=== PATIENT | female | born 1945 | race Caucasian/White ===

== ENCOUNTER 2017-03-25 05:55 | Observation (INO) | payer OTHER ==
[~2017-03-25] VITALS: Ht 160 cm; Wt 89.0 kg
[~2017-03-25 05:55] MED LIST: ASPI81TA82 PO; ATOR20TA PO; CALC500T19 PO; CITA10TA4 PO; FISH100020 PO; L-LY500T4 PO; LISI-363 PO
[2017-03-25] MEDS ORDERED: SODIUM CHLORID 0.9% 500 ML IV PRN (06:15)
[2017-03-25] MEDS ORDERED: LACTATED RINGER'S 1000 ML IV PRN (06:15)
[2017-03-25] MEDS ORDERED: CHLORHEXIDINE GLUCONATE 2 % 1 PACK (2 CLOTHS) TOPICAL PRN (06:15)
[2017-03-25] MEDS ORDERED: METOPROLOL TARTRATE 25 MG TAB PO PRN (06:15)
[2017-03-25] MEDS ORDERED: ceFAZolin 2 GM PREMIX 50 ML IV SCH (06:15)
[2017-03-25] MEDS ORDERED: POVIDONE IODINE 5% (ANTISEPSIS KIT) 4 APPLICATIONS EACH NARE PRN (06:15)
[2017-03-25] MEDS ORDERED: INSULIN HUMAN REGULAR 1,000 UNITS/10 ML VIAL SQ PRN (06:15)
[2017-03-25] MEDS ORDERED: LYSI1000 (06:24)
[2017-03-25] MEDS ORDERED: ASPI81TA11 PO (06:24)
[2017-03-25] MEDS ORDERED: CALC500C16 CHEW (06:24)
[2017-03-25] MEDS ORDERED: CITA10TA4 PO (06:24)
[2017-03-25] MEDS ORDERED: LISI-515 PO (06:24)
[2017-03-25] MEDS ORDERED: ATOR20TA15 PO (06:24)
[2017-03-25] MEDS ORDERED: OMEGCAP PO (06:25)
[2017-03-25] MEDS ORDERED: FAMOTIDINE 20 MG/2 ML VIAL ONE (07:08)
[2017-03-25] MEDS ORDERED: APREPITANT 40 MG CAP ONE (07:08)
[2017-03-25] MEDS ORDERED: LACTATED RINGER'S 1000 ML INJ 1,000 ML IV ONE (07:44)
[2017-03-25] MEDS ORDERED: ONDANSETRON HCL 4 MG/2 ML VIAL IV PUSH ONE (07:44)
[2017-03-25] MEDS ORDERED: PROPOFOL 200 MG/20 ML AMP IV ONE (07:44)
[2017-03-25] MEDS ORDERED: ePHEDrine/NS 25 MG/5 ML SYR IV ONE (07:44)
[2017-03-25] MEDS ORDERED: PHENYLEPH/NS 1000 MCG/10 ML SYR IV ONE (07:44)
[2017-03-25] MEDS ORDERED: MIDAZOLAM HCL 2 MG/2 ML VIAL ONE (07:48)
[2017-03-25] MEDS ORDERED: LIDOCAINE 2%/EPINEPHrine PF 1:200,000 20ML SDV ONE (09:23)
[2017-03-25] MEDS ORDERED: ceFAZolin INJ 1,000 MG VIAL IV ONE (10:56)
[2017-03-25] MEDS ORDERED: DO NOT ADM ANY ANTICOAGULANT DRUGS PRN (12:53)
[2017-03-25] MEDS ORDERED: PROMETHAZINE HCL 25 MG TAB PO PRN (13:00)
[2017-03-25] MEDS: LACTATED RINGER'S 1000 ML INJ 1,000 ML IV SCH ×2 (13:00→19:49)
[2017-03-25] MEDS ORDERED: *morphine SULFATE 8 MG/ML PERIprocedure ONLY ONE ×3 (13:02→13:42)
[2017-03-25] MEDS ORDERED: *HYDROmorphone PF 1 MG VIAL PERIprocedural Use ONLY ONE (14:22)
[2017-03-25] MEDS: HYDROmorphone HCL PF 1 MG/ML VIAL IV PUSH PRN ×3 (14:26→20:23)
[2017-03-25 20:00] VITALS: BP 124/58; PULSE 78; RESP 17; TEMP 96.8; O2SAT 92
[2017-03-25] MEDS ORDERED: ATORVASTATIN 20 MG TAB PO SCH (21:00)
[2017-03-26] VITALS: BP 119/57; PULSE 75; RESP 17; TEMP 96.3; O2SAT 97
[2017-03-26] MEDS: HYDROmorphone HCL PF 1 MG/ML VIAL IV PUSH PRN (00:42)
[2017-03-26 04:00] VITALS: BP 129/59; PULSE 72; RESP 17; TEMP 96.4; O2SAT 93
[2017-03-26] MEDS: oxyCODONE/ACETAMINOPHEN 5 MG/325 MG TAB PO PRN ×2 (05:46→09:46)
[2017-03-26 07:50] VITALS: BP 135/61; PULSE 76; RESP 20; TEMP 96.7; O2SAT 94
[2017-03-26] MEDS ORDERED: LISINOPRIL 20 MG TAB PO SCH (09:00)
--- NOTE | 2017-03-26 10:47 | PD.PLAS.PN ---
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 OK to dc home FU Next week Friday Vital Signs Date Time Temp Pulse Resp B/P (MAP) Pulse Ox O2 Delivery O2 Flow Rate FiO2 03/26/17 07:50 96.7 76 20 135/61 (85) 94 03/26/17 04:00 96.4 72 17 129/59 (82) 93 03/26/17 00:00 96.3 75 17 119/57 (77) 97 03/25/17 20:00 96.8 78 17 124/58 (80) 92 03/25/17 14:30 97.4 77 14 97/55 (69) 93 Nasal Cannula 2 03/25/17 14:15 81 14 113/56 (75) 93 Nasal Cannula 2 03/25/17 14:00 81 14 109/55 (73) 93 Nasal Cannula 2 03/25/17 13:45 81 14 112/57 (75) 93 Nasal Cannula 2 03/25/17 13:30 82 14 105/55 (72) 95 Nasal Cannula 2 03/25/17 13:15 82 14 100/54 (69) 95 Nasal Cannula 2 03/25/17 13:00 81 14 130/66 (87) 95 Nasal Cannula 2 03/25/17 12:53 98.5 87 14 126/58 (80) 97 Nasal Cannula 2 I/O 03/25/17 03/25/17 03/25/17 03/26/17 03/26/17 03/26/17 07:00 15:00 23:00 07:00 15:00 23:00 Intake Total 1610 ml 500 ml Output Total 100 ml 335 ml 955 ml 50 ml Balance 1510 ml 165 ml -955 ml -50 ml Intake Oral 60 ml IV Total 300 ml 500 ml Other 1250 ml Output Urine Total 300 ml 900 ml Drainage Total 35 ml 55 ml 50 ml Estimated Blood Loss 100 ml # Voids 1 # Bowel Movements 1 Gilbert Muse MD Mar 26, 2017 10:47
[2017-03-26] MEDS ORDERED: OXYC1CAP PO (10:56)
--- NOTE | 2017-03-30 07:22 | MP ---
cc: KIT NORTH M.D. DATE OF SURGERY: 03/25/2017 PREOPERATIVE DIAGNOSIS: Bilateral hypermastia with asymmetry right side approximately 30% larger than left. POSTOPERATIVE DIAGNOSIS Bilateral hypermastia with asymmetry right side approximately 30% larger than left. OPERATION Bilateral breast reduction. SURGEON Dr. 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 The patient desired elective breast reduction. She underwent detailed explanation of the procedure, the pros, cons, risks, complications were discussed, the reduction design was explained, issues such as bleeding, hematoma, seroma, infection, flap necrosis, breast tissue necrosis, asymmetry, loss of nipple-areolar sensation and possible future surgeries were discussed, the possibility of keloid or hypertrophic scar and painful scar was also pointed out. The patient is willing to go ahead with the surgery. She was also explained the possibility of being under general anesthesia for approximately 3-4 hours duration. PROCEDURE: The patient was brought to the operating room, was given supine position. Anesthesia was started. Prep and drape was done. IV antibiotic had been given, preoperative markings were reinforced. Time-out was called and completed. The periareolar markings were done with a regular marker and the entire portion of the skin below the López pattern design was tumesced and de-epithelialized. The upper flaps were developed after using tumescent solution at the breast and flap interface as well to reduce the blood loss. Hemostasis was achieved mostly with suture ligatures. The dermal flap on the lateral aspect was developed slightly anterior to the anterior axillary line level and from the breast tissue, which was preserved. On the medial side a small portion was lifted and removed as well. The rest of the breast tissue was maintained as a base pedicle. Reduction was carried out taken out laterally superior and a small portion of the upper medial breast tissue, tapering it down to provide better appearance of the remaining breast mound as well. The total tissue removed on the right side was 1025 grams, plus an additional 0.5 grams later with the nipple positioning. On the left side, the weight was 800 plus 25 grams. he flaps were brought together in the center and then starting from lateral and medial aspect they were tacked down to the inframammary fold line. Final suturing was done. Once the overall shape of the breast mound was obtained, also the lateral dermal flap had been sutured to the chest wall along the anterior axillary line with interrupted sutures as well. A 10 millimeter Gio-Chan drain had been inserted and brought out through the lateral aspect. The nipple-areolar complexes were exteriorized an equal distance from the sternum and also from the inframammary fold position. The final suturing was completed with Vicryl and Prolene. The drains were secured and activated. All the areas were cleaned and sterile dressing was applied. The patient remained stable throughout the procedure. Intraoperative blood loss approximately 75 to 100 cc. There were no complications. signed, not fully reviewed MD [email or web address] Marcial/ANGEL /6:52 PM /6:42 AM JOSE
== END 2017-03-26 13:23 | disposition home or self-care (01) ==
LOC: HSDC 05:55 → HOCA 12:15 → UNDOADMOB 14:42 → HOCA 14:42 → UNDODISOB 03-26 11:35
PROVIDERS: ADMIT Plastic Surgery; ATTEND Plastic Surgery
DX: N62 Hypertrophy of breast (principal); M25.512 Pain in left shoulder; M81.0 Age-related osteoporosis without current pathological fracture; I10 Essential (primary) hypertension; I87.2 Venous insufficiency (chronic) (peripheral); E88.81 Metabolic syndrome and other insulin resistance; E66.9 Obesity, unspecified; Z68.30 Body mass index [BMI] 30.0-30.9, adult; I70.0 Atherosclerosis of aorta; M54.2 Cervicalgia; E78.5 Hyperlipidemia, unspecified; R73.9 Hyperglycemia, unspecified
CPT/HCPCS: 00402; 19318; 88305; 96361; 96374; 96376; G0378; J0690; J1170; J2250; J2270; J2370; J2405; J3010; J7120; J8501

== ENCOUNTER 2017-03-29 13:28 | Emergency (ER) | payer OTHER ==
[~2017-03-29] VITALS: Ht 162.6 cm; Wt 90.0 kg
[~2017-03-29 13:28] MED LIST changes: +ASPI81TA11 PO; -ASPI81TA82 PO; -ATOR20TA PO; +ATOR20TA15 PO; -CALC500T19 PO; -CITA10TA4 PO; -FISH100020 PO; -L-LY500T4 PO; -LISI-363 PO; +LISI-515 PO; +LYSI1000; +OMEGCAP PO; +OXYC1CAP PO
[2017-03-29 13:30] VITALS: BP 176/74; PULSE 86; RESP 15; TEMP 98.2; O2SAT 99
--- NOTE | 2017-03-29 13:58 | PD ---
HPI Chief Complaint: Supply Chain Planner Problem Time Seen by Provider: 13:49 Travel History International Travel<30 days: No Contact w/Intl Traveler<30days: No Traveled to known affect area: No History of Present Illness HPI 71-year-old female requesting a reservoir bulb for her left Gio-Chan drain on the left breast. Patient status post bilateral breast reduction 3 days ago. Patient has TOSHA drain bilaterally. Patient states that the bulb on the left side is malfunction since this morning. Patient denies any other medical problem. Patient denies any fever chills. PFSH Past Medical History Cancer: No Cardiovascular Problems: Yes Diabetes: No Endocrine: No Genitourinary: No Hepatitis: No Hiatal Hernia: No Immune Disorder: No Musculoskeletal: Yes (BACK PAIN) Neurologic: No Psychiatric: No Reproductive: No Respiratory: No Thyroid Disease: No Past Surgical History AICD: No Gynecologic Surgery: Yes (HYSTERECTOMY;C section) Joint Replacement: Yes (R TOTAL KNEE) Pacemaker: No Social History Tobacco Use: No Substance Use: No Allergies-Medications (Allergen,Severity, Reaction): Coded Allergies: Iodinated Contrast- Oral and IV Dye (Verified Allergy, Severe, Itching, ) Reported Meds & Prescriptions Reported Meds & Active Scripts Active Oxycodone (Oxycodone HCl) 5 Mg Cap 5 Mg PO Q4H PRN 7 Days Reported [place]-3 Fish Oil/Vitamin (Fish Oil-Cholecalciferol) 1,000-1,000 Mg Cap 1 Cap PO DAILY Lysine (Lysine HCl) 1,000 Mg Tab 1 Tab DAILY Lisinopril 20 Mg Tab 20 Mg PO DAILY Atorvastatin (Atorvastatin Calcium) 20 Mg Tab 20 Mg PO HS Aspirin EC (Aspirin) 81 Mg Tabdr 81 Mg PO DAILY Review of Systems General / Constitutional: No: Fever Eyes: No: Visual changes HENT: No: Headaches Cardiovascular: No: Chest Pain or Discomfort Respiratory: No: Shortness of Breath Gastrointestinal: No: Abdominal Pain Genitourinary: No: Dysuria Musculoskeletal: No: Pain Skin: No Rash Neurologic: No: Weakness Psychiatric: No: Depression Endocrine: No: Polydipsia Hematologic/Lymphatic: No: Easy Bruising Physical Exam Narrative GENERAL: Well-nourished, well-developed patient. SKIN: Focused skin assessment warm/dry. HEAD: Normocephalic. EYES: No scleral icterus. No injection or drainage. NECK: Supple, trachea midline. No JVD or lymphadenopathy. CARDIOVASCULAR: Regular rate and rhythm without murmurs, gallops, or rubs. RESPIRATORY: Breath sounds equal bilaterally. No accessory muscle use. GASTROINTESTINAL: Abdomen soft, non-tender, nondistended. MUSCULOSKELETAL: No cyanosis, or edema. BACK: Nontender without obvious deformity. No CVA tenderness. The bulb on the TOSHA drainage on the left side completely inflated and not suctioning. Data Data Last Documented VS Vital Signs Date Time Temp Pulse Resp B/P (MAP) Pulse Ox O2 Delivery O2 Flow Rate FiO2 03/29/17 14:19 03/29/17 13:53 16 98 Room Air 03/29/17 13:30 98.2 86 MDM Medical Decision Making Medical Screen Exam Complete: Yes Emergency Medical Condition: Yes Differential Diagnosis Differential diagnosis including TOSHA drain bulb replacement. Narrative Course 71-year-old female status post bilateral breast reduction surgery 3 days ago with normal functioning TOSHA drain bulb on the left side. Procedures Procedure Narrative The bulb from the TOSHA drain was removed. New bulb obtained from OR replace. Diagnosis Primary Impression: Broken Gio-Chan drain Qualified Codes: T85.698A - Other mechanical complication of other specified internal prosthetic devices, implants and grafts, initial encounter Patient Instructions: General Instructions Additional Instructions: Follow-up with personal physician. Med/Other Pt SpecificInfo: No Change to Meds Disposition: 01 DISCHARGE HOME Condition: Stable Fili Jewell MD Mar 29, 2017 13:58
== END 2017-03-29 14:19 | disposition home or self-care (01) ==
LOC: NEPD 13:28
DX: T85.698A Other mechanical complication of other specified internal prosthetic devices, implants and grafts, initial encounter (principal)
CPT/HCPCS: 99282